=== PATIENT | female | born 1965 | race Caucasian/White ===

== ENCOUNTER 2020-11-28 23:32 | Emergency (ER) | payer OTHER ==
[2020-11-28 23:47] VITALS: BMI 24.0
[2020-11-29] MEDS ORDERED: ONDANSETRON 4 MG/2 ML VIAL IVPB ONE ×2 (00:47→03:39)
[2020-11-29] MEDS ORDERED: SODIUM CHLORIDE 1,000 ML ONE ×2 (00:47→03:39)
[2020-11-29] MEDS ORDERED: KETOROLAC TROMETHAMINE 30 MG/1 ML VIAL IVPUSH ONE (00:47)
[2020-11-29] MEDS ORDERED: KETOROLAC TROMETHAMINE 30 MG/1 ML VIAL ONE (00:49)
[2020-11-29] MEDS ORDERED: ONDANSETRON 4 MG/2 ML VIAL ONE ×2 (00:49→03:44)
[2020-11-29 01:35] LABS: HEMOGLOBIN 11.2 GM/dL (10.7-15.3); MCH 30.1 pg (25.7-33.7); MEAN CELL VOLUME 86.1 fl (80-96); MEAN PLT VOLUME 7.7 fl (7.5-11.1); PLATELET COUNT 201 10^3/uL (134-434); RBC 3.72 M/mm3 (3.60-5.2); RDW 14.6 % (11.6-15.6); WHITE BLOOD COUNT 7.9 K/mm3 (4.0-10.0)
[2020-11-29 02:06] LABS: CHLORIDE 98 mmol/L (98-107); SODIUM 131 mmol/L (136-145)
[2020-11-29 02:09] LABS: ALBUMIN 3.7 g/dl (3.4-5.0); ANION GAP 11 MMOL/L (8-16); BLOOD UREA NITROGEN 32.1 mg/dL (7-18); CO2 23 mmol/L (21-32)
[2020-11-29 02:12] LABS: CREATININE 1.8 mg/dL (0.55-1.3); SGOT/AST 13 U/L (15-37); SGPT/ALT 30 U/L (13-61)
[2020-11-29 02:14] LABS: BILIRUBIN,TOTAL 1.7 mg/dL (0.2-1); TOT PROT 6.6 g/dl (6.4-8.2)
[2020-11-29 02:15] LABS: ALK PHOS 96 U/L (45-117)
[2020-11-29 02:20] LABS: GLUCOSE,RANDOM 409 mg/dL (74-106)
[2020-11-29 02:43] LABS: ANISOCYTOSIS 2+; MACROCYTOSIS 0; PLATELET ESTIMATE NORMAL; TEAR DROP CELLS 1+
[2020-11-29 03:28] VITALS: BP 128/59
[2020-11-29] MEDS ORDERED: PIPERACILLIN/TAZOB 3.375 GM 3.375 GM in DEXTROSE 5%-WATER - 50 ML IVPB ONE (03:40)
[2020-11-29] MEDS ORDERED: ACETAMINOPHEN INJECTION 100 ML IVPB ONE (03:41)
[2020-11-29] MEDS ORDERED: ACETAMINOPHEN 1000 MG/100 ML VIAL (NON FORMULARY) IVPB ONE (03:41)
[2020-11-29] MEDS ORDERED: PIPERACILLIN/TAZOBACTAM 3.375 GM VIAL IVPB ONE (03:44)
[2020-11-29] MEDS ORDERED: INSULIN REGULAR HUMAN 100 UNITS/ML *VIAL IVPUSH ONE (03:59)
[2020-11-29] MEDS ORDERED: INSULIN REGULAR HUMAN 100 UNITS/ML *VIAL ONE (04:03)
[2020-11-29 05:26] VITALS: PULSE 108; TEMP 99.5
== END 2020-11-29 05:27 | disposition home or self-care (01) ==
LOC: FER 23:32
DX: N10 Acute pyelonephritis (principal)
CPT/HCPCS: 36415; 74176-TC; 80053; 82962; 85025; 87086; 87186; 99284-25; C9803; J0131; U0003; U0005

== ENCOUNTER 2020-11-29 13:13 | Inpatient (IN) | payer OTHER ==
[2020-11-29 13:38] VITALS: BMI 23.8
[2020-11-29 14:42] LABS: HEMATOCRIT 25.6 % (32.4-45.2); MCHC 35.1 g/dl (32.0-36.0); MEAN CELL VOLUME 88.4 fl (80-96); MEAN PLT VOLUME 8.6 fl (7.5-11.1); PLATELET COUNT 124 10^3/uL (134-434); RDW 13.8 % (11.6-15.6); WHITE BLOOD COUNT 10.6 K/mm3 (4.0-10.8)
[2020-11-29 14:50] LABS: ALBUMIN 2.9 g/dl (3.4-5.0); BILIRUBIN,TOTAL 3.7 mg/dl (0.2-1); CALCIUM 7.4 mg/dl (8.5-10); MAGNESIUM 0.8 mg/dL (1.8-2.4); PHOSPHOROUS 1.5 mg/dl (2.5-4.9); TOT PROT 4.8 g/dl (6.4-8.2)
[2020-11-29] MEDS ORDERED: VANCOMYCIN 1 GM in D5W (PRE-DOCKED) 1,000 MG/250 ML IVPB ONE (15:41)
[2020-11-29] MEDS ORDERED: PIPERACILLIN/TAZOB 3.375 GM 3.375 GM in DEXTROSE 5%-WATER - 50 ML IVPB ONE (15:41)
[2020-11-29] MEDS ORDERED: VASOPRESSIN 40 UNITS/100 ML BAG IV SCH (16:00)
[2020-11-29] MEDS ORDERED: VASOPRESSIN 20 UNITS/ML VIAL IV ONE (16:00)
[2020-11-29] MEDS ORDERED: NOREPINEPHRINE BITARTRATE 4 MG/4 ML ML IV ONE (16:07)
[2020-11-29] MEDS: NOREPINEPHRINE BITARTRATE 16,000 MCG in SODIUM CHLORIDE 484 ML IV SCH (16:15)
[2020-11-29] MEDS ORDERED: LORazepam 2 MG/ML SDV VIAL IVPUSH ONE (16:21)
[2020-11-29] MEDS ORDERED: PIPERACILLIN/TAZOBACTAM 3.375 GM VIAL IVPB ONE (16:30)
[2020-11-29] MEDS ORDERED: VANCOMYCIN 1,000 MG VIAL (RESTRICTED TO ID ONLY) ONE (16:35)
[2020-11-29 17:04] LABS: INR 3.52 (0.82-1.09); PROTHROMBIN TIME (PATIENT) 39.4 SEC (10.2-13.0)
[2020-11-29 17:57] LABS: LACTIC ACID 3.2 mmol/L (0.4-2.0)
[2020-11-29] MEDS ORDERED: TRIMETHOBENZAMIDE HCL 300 MG CAPSULE PO ONE (18:31)
[2020-11-29] MEDS ORDERED: PHYTONADIONE 10 MG/1 ML AMP IVPB ONE (19:28)
[2020-11-29] MEDS ORDERED: MIDAZOLAM HCL 2 MG/2 ML SINGLE DOSE VIAL ONE (19:36)
[2020-11-29] MEDS ORDERED: KETAMINE HCL 200 MG/20 ML VIAL ONE (19:36)
[2020-11-29] MEDS ORDERED: PROPOFOL 20 ML ONE (19:36)
[2020-11-29] MEDS ORDERED: DEXMEDETOMIDINE HCL 200 MCG/2 ML IVPB ONE (19:43)
[2020-11-29] MEDS ORDERED: BUPIVACAINE HCL/PF 0.25% (2.5MG/ML) 10 ML VIAL ONE (19:43)
[2020-11-29 21:43] LABS: URINE APPEARANCE TURBID; URINE BILIRUBIN 1+ (NEGATIVE); URINE COLOR DK YELLOW; URINE GLUCOSE (UA) 250 (NEGATIVE); URINE KETONE TRACE (NEGATIVE)
[2020-11-29 21:44] LABS: EPI CELLS 9.1 /uL (0-25.1); URINE LEUK ESTERASE 3+ (NEGATIVE); URINE NITRITE NEGATIVE (NEGATIVE); URINE PROTEIN 100 (NEGATIVE); URINE RBC 1137 /uL (0-23.9); URINE WBC 626.7 /uL (0-25.8)
[2020-11-29 21:45] LABS: HYALINE CASTS 2.92 /uL (0-3.1); URINE BACTERIA 4834 /uL (0-1359)
[2020-11-29 21:47] LABS: CREATININE, URINE RANDOM 87.2 mg/dL (30-150)
[2020-11-29] MEDS ORDERED: MAGNESIUM SULF 50% (8.12 MEQ/2 ML-1 GM VIAL) IVPB ONE (22:08)
[2020-11-29] MEDS: MUPIROCIN 2% TOPICAL OINTMENT FOR DECOLONIZATION NS SCH (23:38)
[2020-11-29] MEDS: CHLORHEXIDINE GLUCONATE 4% CLEANSER FOR DECOLONIZATION TP SCH (23:38)
[2020-11-29 23:51] LABS: HEMATOCRIT 25.7 % (32.4-45.2); HEMOGLOBIN 8.7 GM/dL (10.7-15.3); MCH 29.6 pg (25.7-33.7); MCHC 33.9 g/dl (32.0-36.0); MEAN CELL VOLUME 87.3 fl (80-96); PLATELET COUNT 125 10^3/uL (134-434); RBC 2.95 M/mm3 (3.60-5.2); RDW 14.4 % (11.6-15.6); WHITE BLOOD COUNT 22.9 K/mm3 (4.0-10.0)
[2020-11-30 00:25] LABS: LACTIC ACID 3.1 mmol/L (0.4-2.0)
[2020-11-30] MEDS ORDERED: ACETAMINOPHEN 1000 MG/100 ML VIAL (NON FORMULARY) IVPB ONE (00:36)
[2020-11-30] MEDS ORDERED: PIPERACILLIN/TAZOB 3.375 GM 3.375 GM in DEXTROSE 5%-WATER - 50 ML IVPB ONE (05:15)
[2020-11-30] MEDS ORDERED: DEXTROSE 5%-WATER - 50 ML IVPB ONE ×3 (05:56→18:00)
[2020-11-30] MEDS ORDERED: PIPERACILLIN/TAZOBACTAM 3.375 GM VIAL IVPB ONE ×3 (05:56→18:00)
[2020-11-30 06:42] LABS: INR 1.74 (0.83-1.09); PROTHROMBIN TIME (PATIENT) 21.5 SEC (9.7-13.0)
[2020-11-30 06:46] LABS: BLOOD UREA NITROGEN 37.1 mg/dL (7-18); CREATININE 2.4 mg/dL (0.55-1.3); GLUCOSE,RANDOM 332 mg/dL (74-106); SODIUM 136 mmol/L (136-145)
[2020-11-30 06:47] LABS: ANION GAP 11 MMOL/L (8-16); CALCIUM 6.5 mg/dL (8.5-10.1); CHLORIDE 110 mmol/L (98-107); CO2 15 mmol/L (21-32); PHOSPHOROUS 2.5 mg/dL (2.5-4.9)
[2020-11-30 06:48] LABS: ALBUMIN 2.3 g/dl (3.4-5.0); BILIRUBIN,TOTAL 2.7 mg/dL (0.2-1); MAGNESIUM 1.4 mg/dL (1.8-2.4); SGOT/AST 23 U/L (15-37); SGPT/ALT 36 U/L (13-61); TOT PROT 4.7 g/dl (6.4-8.2)
[2020-11-30] MEDS ORDERED: INSULIN (NOVOLOG) ASPART 100 UNITS/ML 10ML VIAL SQ ONE (07:43)
[2020-11-30 08:26] LABS: ALK PHOS 73 U/L (45-117); EOS % 0.5 % (0-4.5); HEMATOCRIT 25.8 % (32.4-45.2); HEMOGLOBIN 8.8 GM/dL (10.7-15.3); LYMPH % 4.8 % (8-40); MCH 29.7 pg (25.7-33.7); MCHC 34.2 g/dl (32.0-36.0); MEAN CELL VOLUME 86.9 fl (80-96); MEAN PLT VOLUME 8.7 fl (7.5-11.1); MONO % 4.1 % (3.8-10.2); NEUT % 90.4 % (42.8-82.8); PLATELET COUNT 111 10^3/uL (134-434); RBC 2.96 M/mm3 (3.60-5.2); RDW 14.9 % (11.6-15.6); WHITE BLOOD COUNT 19.5 K/mm3 (4.0-10.0)
[2020-11-30 08:27] LABS: BASO % 0.2 % (0-2.0)
[2020-11-30] MEDS ORDERED: MAGNESIUM 1GM/D5W - 1 GM/100 ML IVPB IVPB ONE (08:30)
[2020-11-30 09:26] LABS: URINE COLOR YELLOW
[2020-11-30 09:27] LABS: PH,URINE 5.5 (5.0-8.0); URINE APPEARANCE CLOUDY; URINE BILIRUBIN NEGATIVE (NEGATIVE); URINE GLUCOSE (UA) 1 (NEGATIVE); URINE KETONE NEGATIVE (NEGATIVE); URINE NITRITE NEGATIVE (NEGATIVE); URINE PROTEIN 1 (NEGATIVE); URINE UROBILINOGEN 0.2 mg/dL (0.2-1.0)
[2020-11-30 09:28] LABS: EPI CELLS 22 /uL (0-25.1); HYALINE CASTS 3 /uL (0-3.1); URINE BACTERIA 3.7 /uL (0-1359); URINE LEUK ESTERASE 2+ (NEGATIVE); URINE RBC 373 /uL (0-23.9); URINE WBC 196 /uL (0-25.8)
[2020-11-30] MEDS ORDERED: PIPERACILLIN/TAZOB 3.375 GM 3.375 GM in DEXTROSE 5%-WATER - 50 ML IVPB SCH (10:00)
[2020-11-30] MEDS: NAPH,MB-DB/K PH,MBDB POWDER PACKET PO SCH (10:06)
[2020-11-30] MEDS: MUPIROCIN 2% TOPICAL OINTMENT FOR DECOLONIZATION NS SCH ×2 (10:27→22:10)
[2020-11-30] MEDS: LACTATED RINGERS SOLUTION 1,000 ML/1,000 ML INFUS.BAG IV SCH (11:55)
[2020-11-30] MEDS: INSULIN SLIDING SCALE (NOVOLOG) 1 VIAL SQ SCH ×3 (11:55→22:11)
[2020-11-30] MEDS: ENOXAPARIN NA (PORCINE) 60 MG/0.6 ML DISP.SYRIN SQ SCH (16:07)
[2020-11-30 16:47] LABS: YEAST NEGATIVE (NEGATIVE)
[2020-11-30] MEDS ORDERED: VANCOMYCIN 1 GM in D5W (PRE-DOCKED) 1,000 MG/250 ML IVPB SCH (17:00)
[2020-11-30] MEDS: NOREPINEPHRINE BITARTRATE 16,000 MCG in SODIUM CHLORIDE 484 ML IV SCH (18:27)
[2020-11-30] MEDS: PIPERACILLIN/TAZOB 3.375 GM 3.375 GM in DEXTROSE 5%-WATER - 50 ML IVPB SCH (18:27)
[2020-11-30] MEDS: ACETAMINOPHEN 1000 MG/100 ML VIAL (NON FORMULARY) IVPB PRN (19:20)
[2020-11-30] MEDS: CHLORHEXIDINE GLUCONATE 4% CLEANSER FOR DECOLONIZATION TP SCH (22:11)
[2020-12-01] MEDS: ACETAMINOPHEN 1000 MG/100 ML VIAL (NON FORMULARY) IVPB PRN ×2 (01:20→18:43)
[2020-12-01] MEDS ORDERED: PIPERACILLIN/TAZOBACTAM 3.375 GM VIAL IVPB ONE ×4 (01:22→23:39)
[2020-12-01] MEDS ORDERED: DEXTROSE 5%-WATER - 50 ML IVPB ONE ×4 (01:22→23:39)
[2020-12-01] MEDS: PIPERACILLIN/TAZOB 3.375 GM 3.375 GM in DEXTROSE 5%-WATER - 50 ML IVPB SCH ×3 (01:56→17:55)
[2020-12-01] MEDS ORDERED: MELATONIN 5 MG TABLETS PO ONE (03:26)
[2020-12-01] MEDS: INSULIN SLIDING SCALE (NOVOLOG) 1 VIAL SQ SCH ×4 (06:07→22:15)
[2020-12-01 06:40] LABS: HEMATOCRIT 22.4 % (32.4-45.2); HEMOGLOBIN 7.8 GM/dL (10.7-15.3); MCH 29.9 pg (25.7-33.7); MEAN CELL VOLUME 85.5 fl (80-96); MEAN PLT VOLUME 9.1 fl (7.5-11.1); PLATELET COUNT 86 10^3/uL (134-434); RBC 2.62 M/mm3 (3.60-5.2); WHITE BLOOD COUNT 11.8 K/mm3 (4.0-10.0)
[2020-12-01 07:10] LABS: BLOOD UREA NITROGEN 27.4 mg/dL (7-18)
[2020-12-01 07:11] LABS: MAGNESIUM 2.1 mg/dL (1.8-2.4)
[2020-12-01 07:14] LABS: CREATININE 1.7 mg/dL (0.55-1.3)
[2020-12-01 07:15] LABS: BILIRUBIN,TOTAL 1.4 mg/dL (0.2-1)
[2020-12-01 07:19] LABS: CALCIUM 7.3 mg/dL (8.5-10.1); TOT PROT 4.5 g/dl (6.4-8.2)
[2020-12-01 07:46] LABS: PHOSPHOROUS 2.2 mg/dL (2.5-4.9)
[2020-12-01] MEDS ORDERED: NAPH,MB-DB/K PH,MBDB POWDER PACKET PO ONE (08:37)
[2020-12-01] MEDS: MUPIROCIN 2% TOPICAL OINTMENT FOR DECOLONIZATION NS SCH ×2 (09:16→21:22)
[2020-12-01] MEDS: NAPH,MB-DB/K PH,MBDB POWDER PACKET PO SCH (09:16)
[2020-12-01 09:42] LABS: ANISOCYTOSIS 0; MACROCYTOSIS 0; PLATELET ESTIMATE DECREASED
[2020-12-01] MEDS: LACTATED RINGERS SOLUTION 1,000 ML/1,000 ML INFUS.BAG IV SCH (12:15)
[2020-12-01 14:37] LABS: INR 1.13 (0.83-1.09); PROTHROMBIN TIME (PATIENT) 13.9 SEC (9.7-13.0)
[2020-12-01] MEDS: ENOXAPARIN NA (PORCINE) 60 MG/0.6 ML DISP.SYRIN SQ SCH (15:31)
[2020-12-01] MEDS ORDERED: VANCOMYCIN 1 GM in D5W (PRE-DOCKED) 1,000 MG/250 ML IVPB SCH (17:00)
[2020-12-01] MEDS ORDERED: TRIMETHOBENZAMIDE HCL 200MG/2ML INJ IM ONE (17:11)
[2020-12-01] MEDS: NOREPINEPHRINE BITARTRATE 16,000 MCG in SODIUM CHLORIDE 484 ML IV SCH (17:19)
[2020-12-01] MEDS ORDERED: ONDANSETRON 4 MG/2 ML VIAL IVPUSH ONE (18:39)
[2020-12-01] MEDS: CHLORHEXIDINE GLUCONATE 4% CLEANSER FOR DECOLONIZATION TP SCH (21:23)
[2020-12-01] MEDS ORDERED: PROMETHAZINE HCL 25 MG/1 ML VIAL IVPUSH ONE (23:28)
[2020-12-02] MEDS ORDERED: LORazepam 1 MG TABLET PO ONE ×2 (00:52→01:15)
[2020-12-02] MEDS ORDERED: MAGNESIUM SULF 50% (8.12 MEQ/2 ML-1 GM VIAL) IVPB ONE (00:52)
[2020-12-02] MEDS ORDERED: ONDANSETRON *ODT* 4 MG TABLET SL ONE (01:08)
[2020-12-02] MEDS: PIPERACILLIN/TAZOB 3.375 GM 3.375 GM in DEXTROSE 5%-WATER - 50 ML IVPB SCH ×3 (02:45→17:04)
[2020-12-02 06:06] LABS: HEMATOCRIT 24.6 % (32.4-45.2); HEMOGLOBIN 8.5 GM/dL (10.7-15.3); MCH 29.8 pg (25.7-33.7); MCHC 34.6 g/dl (32.0-36.0); MEAN CELL VOLUME 86.2 fl (80-96); MEAN PLT VOLUME 8.8 fl (7.5-11.1); PLATELET COUNT 134 10^3/uL (134-434); RBC 2.85 M/mm3 (3.60-5.2); WHITE BLOOD COUNT 14.9 K/mm3 (4.0-10.0)
[2020-12-02 06:30] LABS: ALBUMIN 2.2 g/dl (3.4-5.0); BLOOD UREA NITROGEN 21.4 mg/dL (7-18); CALCIUM 7.9 mg/dL (8.5-10.1); MAGNESIUM 2.1 mg/dL (1.8-2.4)
[2020-12-02 06:33] LABS: CREATININE 1.3 mg/dL (0.55-1.3)
[2020-12-02] MEDS: INSULIN SLIDING SCALE (NOVOLOG) 1 VIAL SQ SCH ×4 (06:33→22:06)
[2020-12-02 06:34] LABS: PHOSPHOROUS 2.4 mg/dL (2.5-4.9)
[2020-12-02] MEDS ORDERED: PT OWN MED DRAWER 7, Y5N ONE (06:54)
[2020-12-02 08:17] LABS: ANISOCYTOSIS 0; HELMET CELLS 0; HOWELL-JOLLY BODIES 0; MACROCYTOSIS 0; OVALOCYTE 0; PLATELET ESTIMATE DECREASED; ROULEAU 0; SICKELED CELLS 0; TARGET CELLS 0; TEAR DROP CELLS 0; TOXIC GRANULATION 0
[2020-12-02] MEDS ORDERED: DEXTROSE 5%-WATER - 50 ML IVPB ONE ×2 (09:20→16:46)
[2020-12-02] MEDS ORDERED: PIPERACILLIN/TAZOBACTAM 3.375 GM VIAL IVPB ONE ×2 (09:20→16:46)
[2020-12-02] MEDS: MUPIROCIN 2% TOPICAL OINTMENT FOR DECOLONIZATION NS SCH ×2 (09:51→21:39)
[2020-12-02] MEDS: NAPH,MB-DB/K PH,MBDB POWDER PACKET PO SCH (09:51)
[2020-12-02] MEDS: ENOXAPARIN NA (PORCINE) 60 MG/0.6 ML DISP.SYRIN SQ SCH ×2 (09:51→22:06)
[2020-12-02] MEDS ORDERED: ONDANSETRON 4 MG/2 ML VIAL IVPUSH ONE ×2 (16:40→22:53)
[2020-12-02] MEDS: LACTATED RINGERS SOLUTION 1,000 ML/1,000 ML INFUS.BAG IV SCH (16:57)
[2020-12-02] MEDS ORDERED: hydrOXYzine HCL 50 MG/ML VIAL IM ONE (18:01)
[2020-12-02] MEDS: CHLORHEXIDINE GLUCONATE 4% CLEANSER FOR DECOLONIZATION TP SCH (21:40)
[2020-12-02] MEDS ORDERED: ONDANSETRON 4 MG/2 ML VIAL ONE (22:54)
[2020-12-02] MEDS ORDERED: MELATONIN 5 MG TABLETS PO ONE (22:59)
[2020-12-03] MEDS ORDERED: PIPERACILLIN/TAZOBACTAM 3.375 GM VIAL IVPB ONE ×3 (00:47→17:29)
[2020-12-03] MEDS ORDERED: DEXTROSE 5%-WATER - 50 ML IVPB ONE ×3 (00:47→17:29)
[2020-12-03] MEDS: PIPERACILLIN/TAZOB 3.375 GM 3.375 GM in DEXTROSE 5%-WATER - 50 ML IVPB SCH ×3 (01:46→17:40)
[2020-12-03] MEDS: INSULIN SLIDING SCALE (NOVOLOG) 1 VIAL SQ SCH ×4 (06:48→22:02)
[2020-12-03 09:17] LABS: HEMATOCRIT 22.5 % (32.4-45.2); HEMOGLOBIN 7.9 GM/dL (10.7-15.3); MCH 30.2 pg (25.7-33.7); MCHC 34.9 g/dl (32.0-36.0); MEAN CELL VOLUME 86.4 fl (80-96); MEAN PLT VOLUME 8.6 fl (7.5-11.1); PLATELET COUNT 129 10^3/uL (134-434); RBC 2.61 M/mm3 (3.60-5.2)
[2020-12-03 09:42] LABS: BLOOD UREA NITROGEN 14.6 mg/dL (7-18); CALCIUM 7.9 mg/dL (8.5-10.1)
[2020-12-03 09:43] LABS: MAGNESIUM 1.4 mg/dL (1.8-2.4)
[2020-12-03 09:46] LABS: CREATININE 1.1 mg/dL (0.55-1.3)
[2020-12-03 09:47] LABS: BILIRUBIN,TOTAL 0.7 mg/dL (0.2-1); TOT PROT 4.6 g/dl (6.4-8.2)
[2020-12-03] MEDS: MUPIROCIN 2% TOPICAL OINTMENT FOR DECOLONIZATION NS SCH ×2 (10:38→22:03)
[2020-12-03] MEDS: ENOXAPARIN NA (PORCINE) 60 MG/0.6 ML DISP.SYRIN SQ SCH ×2 (10:39→22:02)
[2020-12-03] MEDS: NAPH,MB-DB/K PH,MBDB POWDER PACKET PO SCH (10:39)
[2020-12-03] MEDS ORDERED: METOCLOPRAMIDE HCL INJECTION 10 MG/2 ML VIAL IVPUSH ONE (17:14)
[2020-12-03] MEDS: LACTOBACILLUS ACIDOPHILUS 1 TABLET PO SCH (17:40)
[2020-12-03] MEDS: ACETAMINOPHEN 1000 MG/100 ML VIAL (NON FORMULARY) IVPB PRN (18:02)
[2020-12-03] MEDS: LACTATED RINGERS SOLUTION 1,000 ML/1,000 ML INFUS.BAG IV SCH (19:14)
[2020-12-03] MEDS ORDERED: INSULIN (NOVOLOG) ASPART 100 UNITS/ML 10ML VIAL ONE (21:58)
[2020-12-03] MEDS: CHLORHEXIDINE GLUCONATE 4% CLEANSER FOR DECOLONIZATION TP SCH (22:03)
[2020-12-03] MEDS ORDERED: ONDANSETRON 4 MG/2 ML VIAL IVPUSH ONE (22:58)
[2020-12-04] MEDS ORDERED: MELATONIN 5 MG TABLETS PO ONE (01:22)
[2020-12-04] MEDS ORDERED: DEXTROSE 5%-WATER - 50 ML IVPB ONE ×3 (02:10→18:20)
[2020-12-04] MEDS ORDERED: PIPERACILLIN/TAZOBACTAM 3.375 GM VIAL IVPB ONE ×3 (02:10→18:20)
[2020-12-04] MEDS: PIPERACILLIN/TAZOB 3.375 GM 3.375 GM in DEXTROSE 5%-WATER - 50 ML IVPB SCH ×3 (02:15→18:38)
[2020-12-04] MEDS ORDERED: ACETAMINOPHEN 1000 MG/100 ML VIAL (NON FORMULARY) IVPB PRN (04:54)
[2020-12-04] MEDS: INSULIN SLIDING SCALE (NOVOLOG) 1 VIAL SQ SCH ×4 (06:15→21:30)
[2020-12-04] MEDS: LACTATED RINGERS SOLUTION 1,000 ML/1,000 ML INFUS.BAG IV SCH ×3 (06:16→16:07)
[2020-12-04 07:58] LABS: HEMATOCRIT 23.6 % (32.4-45.2); MCH 29.6 pg (25.7-33.7); MEAN CELL VOLUME 87.2 fl (80-96); MEAN PLT VOLUME 8.5 fl (7.5-11.1); PLATELET COUNT 151 10^3/uL (134-434); RDW 14.8 % (11.6-15.6)
[2020-12-04 08:12] LABS: CALCIUM 7.8 mg/dL (8.5-10.1)
[2020-12-04 08:13] LABS: ALBUMIN 2.1 g/dl (3.4-5.0); BLOOD UREA NITROGEN 10.6 mg/dL (7-18); MAGNESIUM 1.2 mg/dL (1.8-2.4)
[2020-12-04 08:16] LABS: CREATININE 0.9 mg/dL (0.55-1.3); PHOSPHOROUS 3.3 mg/dL (2.5-4.9)
[2020-12-04 08:17] LABS: BILIRUBIN,TOTAL 0.8 mg/dL (0.2-1)
[2020-12-04 08:18] LABS: TOT PROT 4.6 g/dl (6.4-8.2)
[2020-12-04] MEDS ORDERED: MAGNESIUM OXIDE 400 MG TABLET (FP) PO ONE (08:21)
[2020-12-04] MEDS ORDERED: MUPIROCIN 2% TOPICAL OINTMENT FOR DECOLONIZATION NS SCH (10:00)
[2020-12-04] MEDS: ENOXAPARIN NA (PORCINE) 60 MG/0.6 ML DISP.SYRIN SQ SCH ×2 (10:36→21:30)
[2020-12-04] MEDS: LACTOBACILLUS ACIDOPHILUS 1 TABLET PO SCH (10:37)
[2020-12-04] MEDS: NAPH,MB-DB/K PH,MBDB POWDER PACKET PO SCH (10:37)
[2020-12-04] MEDS ORDERED: MAGNESIUM SULF 50% (8.12 MEQ/2 ML-1 GM VIAL) IVPB ONE (10:58)
[2020-12-04] MEDS: METOCLOPRAMIDE HCL INJECTION 10 MG/2 ML VIAL IVPUSH PRN (14:11)
[2020-12-04] MEDS ORDERED: ONDANSETRON 4 MG TABLET PO PRN (16:57)
[2020-12-04] MEDS: MAGNESIUM OXIDE 400 MG TABLET (FP) PO SCH (21:30)
[2020-12-04] MEDS ORDERED: CHLORHEXIDINE GLUCONATE 4% CLEANSER FOR DECOLONIZATION TP SCH (22:00)
[2020-12-05] MEDS ORDERED: PIPERACILLIN/TAZOBACTAM 3.375 GM VIAL IVPB ONE ×2 (00:54→09:04)
[2020-12-05] MEDS ORDERED: DEXTROSE 5%-WATER - 50 ML IVPB ONE ×2 (00:54→09:04)
[2020-12-05] MEDS: PIPERACILLIN/TAZOB 3.375 GM 3.375 GM in DEXTROSE 5%-WATER - 50 ML IVPB SCH ×2 (01:05→09:25)
[2020-12-05] MEDS: LACTATED RINGERS SOLUTION 1,000 ML/1,000 ML INFUS.BAG IV SCH (02:30)
[2020-12-05] MEDS: METOCLOPRAMIDE HCL INJECTION 10 MG/2 ML VIAL IVPUSH PRN (03:28)
[2020-12-05] MEDS: INSULIN SLIDING SCALE (NOVOLOG) 1 VIAL SQ SCH ×2 (06:20→12:26)
[2020-12-05 06:59] LABS: HEMATOCRIT 22.7 % (32.4-45.2); HEMOGLOBIN 7.7 GM/dL (10.7-15.3); MCH 29.4 pg (25.7-33.7); MEAN CELL VOLUME 86.6 fl (80-96); MEAN PLT VOLUME 8.2 fl (7.5-11.1); PLATELET COUNT 173 10^3/uL (134-434); RBC 2.62 M/mm3 (3.60-5.2); RDW 14.6 % (11.6-15.6); WHITE BLOOD COUNT 10.2 K/mm3 (4.0-10.0)
[2020-12-05 07:12] LABS: INR 1.06 (0.83-1.09); PROTHROMBIN TIME (PATIENT) 13.1 SEC (9.7-13.0)
[2020-12-05 07:38] LABS: BLOOD UREA NITROGEN 7.8 mg/dL (7-18)
[2020-12-05 07:39] LABS: MAGNESIUM 1.6 mg/dL (1.8-2.4)
[2020-12-05 07:41] LABS: CREATININE 0.9 mg/dL (0.55-1.3)
[2020-12-05 07:42] LABS: BILIRUBIN,TOTAL 0.9 mg/dL (0.2-1); PHOSPHOROUS 3.3 mg/dL (2.5-4.9)
[2020-12-05 07:43] LABS: TOT PROT 4.7 g/dl (6.4-8.2)
[2020-12-05] MEDS ORDERED: MAGNESIUM SULF 50% (8.12 MEQ/2 ML-1 GM VIAL) IVPB ONE ×2 (07:44→09:19)
[2020-12-05] MEDS: ENOXAPARIN NA (PORCINE) 60 MG/0.6 ML DISP.SYRIN SQ SCH (09:24)
[2020-12-05] MEDS: MAGNESIUM OXIDE 400 MG TABLET (FP) PO SCH (09:24)
[2020-12-05] MEDS: LACTOBACILLUS ACIDOPHILUS 1 TABLET PO SCH (09:24)
[2020-12-05] MEDS: NAPH,MB-DB/K PH,MBDB POWDER PACKET PO SCH (09:25)
[2020-12-05] MEDS ORDERED: INSULIN (LEVEMIR) 100 UNITS/ML UNITS SQ ONE ×3 (10:51→12:29)
[2020-12-05] MEDS ORDERED: INSULIN (NOVOLOG) ASPART 100 UNITS/ML 10ML VIAL ONE (11:47)
[2020-12-05 15:23] VITALS: BP 156/80; PULSE 89; TEMP 98
[2020-12-06] MEDS ORDERED: INSULIN (LEVEMIR) 100 UNITS/ML UNITS SQ SCH (10:00)
== END 2020-12-05 18:24 | disposition home or self-care (01) | DRG 854 ==
LOC: FER 13:13 → JICU 17:50 → J8W 12-03 20:27
PROVIDERS: ADMIT Internal Medicine Pulmonary Disease; ATTEND Internal Medicine
PROC: 05HM33Z Insertion of Infusion Device into Right Internal Jugular Vein, Percutaneous Approach (ICD-10-PCS; 2020-11-29)
PROC: B543ZZA Ultrasonography of Right Jugular Veins, Guidance (ICD-10-PCS; 2020-11-29)
PROC: 0T778DZ Dilation of Left Ureter with Intraluminal Device, Via Natural or Artificial Opening Endoscopic (ICD-10-PCS; principal; 2020-11-29 18:24)
DX: A41.9 Sepsis, unspecified organism (principal); N17.9 Acute kidney failure, unspecified; N12 Tubulo-interstitial nephritis, not specified as acute or chronic; N13.6 Pyonephrosis; E87.2 Acidosis; I95.9 Hypotension, unspecified; E87.70 Fluid overload, unspecified; I10 Essential (primary) hypertension; E83.42 Hypomagnesemia; N13.9 Obstructive and reflux uropathy, unspecified; D72.829 Elevated white blood cell count, unspecified; D69.6 Thrombocytopenia, unspecified; E11.9 Type 2 diabetes mellitus without complications
CPT/HCPCS: 36415; 71045-TC-FY; 76000-TC-FY; 76775-TC; 80053; 81003; 82436; 82570; 82962; 83036; 83605; 83735; 84100; 84133; 84300; 84484; 85025; 85027; 85610; 86850; 86900; 86901; 87040; 87086; 93005; 93010; 94010; 99285-25; J0131; Q0162

== ENCOUNTER 2020-12-05 21:22 | Inpatient (IN) | payer OTHER ==
[2020-12-05 21:26] VITALS: BMI 24.7
[2020-12-05] MEDS ORDERED: ONDANSETRON 4 MG/2 ML VIAL IVPUSH ONE (22:33)
[2020-12-05] MEDS ORDERED: SODIUM CHLORIDE 0.9% 1000 ML INFUS.BAG IV ONE (22:33)
[2020-12-05] MEDS ORDERED: ONDANSETRON 4 MG/2 ML VIAL ONE (22:41)
[2020-12-05] MEDS ORDERED: ACETAMINOPHEN 500 MG TABLET (FP) PO ONE (22:58)
[2020-12-05] MEDS ORDERED: ACETAMINOPHEN 325 MG TABLET (FP) ONE (23:00)
[2020-12-05 23:41] LABS: BASO % 0.5 % (0-2.0); EOS % 1.6 % (0-4.5); HEMATOCRIT 25.3 % (32.4-45.2); HEMOGLOBIN 8.4 GM/dL (10.7-15.3); MCH 29.1 pg (25.7-33.7); MCHC 33.1 g/dl (32.0-36.0); MEAN PLT VOLUME 8.3 fl (7.5-11.1); MONO % 5.7 % (3.8-10.2); NEUT % 84.2 % (42.8-82.8); PLATELET COUNT 202 10^3/uL (134-434); RBC 2.88 M/mm3 (3.60-5.2); RDW 14.9 % (11.6-15.6)
[2020-12-05 23:48] LABS: INR 1.02 (0.83-1.09); PROTHROMBIN TIME (PATIENT) 12.3 SEC (9.7-13.0)
[2020-12-05 23:50] LABS: ACTIVATED PTT 28.9 SECONDS (25.2-36.5)
[2020-12-06 00:03] LABS: BLOOD UREA NITROGEN 9.9 mg/dL (7-18); CALCIUM 8.3 mg/dL (8.5-10.1)
[2020-12-06 00:07] LABS: CREATININE 1.3 mg/dL (0.55-1.3)
[2020-12-06 00:08] LABS: BILIRUBIN,TOTAL 0.8 mg/dL (0.2-1); TOT PROT 5.8 g/dl (6.4-8.2)
[2020-12-06 00:11] LABS: N-TERMINAL BNP 2410.4 pg/ml (5-125)
[2020-12-06 00:43] LABS: ALBUMIN 2.7 g/dl (3.4-5.0)
[2020-12-06 03:02] LABS: ANISOCYTOSIS 3+; CORRECTED WBC 11.61 K/mm3; MACROCYTOSIS 1+; OVALOCYTE 1+; PLATELET ESTIMATE NORMAL; ROULEAU 1+; TEAR DROP CELLS 1+
[2020-12-06] MEDS ORDERED: ONDANSETRON 4 MG/2 ML VIAL IVPUSH ONE ×2 (03:32→17:11)
[2020-12-06] MEDS ORDERED: ACETAMINOPHEN 1000 MG/100 ML VIAL (NON FORMULARY) IVPB ONE (03:36)
[2020-12-06] MEDS ORDERED: ACETAMINOPHEN INJECTION 100 ML IVPB ONE (03:56)
[2020-12-06] MEDS ORDERED: ONDANSETRON 4 MG/2 ML VIAL ONE (03:56)
[2020-12-06] MEDS ORDERED: ENOXAPARIN NA (PORCINE) 60 MG/0.6 ML DISP.SYRIN SQ ONE (03:56)
[2020-12-06] MEDS: ENOXAPARIN NA (PORCINE) 60 MG/0.6 ML DISP.SYRIN SQ SCH ×4 (04:13→21:19)
[2020-12-06 04:55] LABS: IRON SERUM 21 ug/dL (50-175); TOTAL IRON BINDING CAPACITY 232 ug/dL (250-450); URIC ACID 5.8 mg/dL (2.6-7.2)
[2020-12-06 05:55] LABS: EPI CELLS 9 /uL (0-25.1); HYALINE CASTS 2 /uL (0-3.1); PH,URINE 5.5 (5.0-8.0); URINE APPEARANCE CLEAR; URINE BACTERIA 8 /uL (0-1359); URINE BILIRUBIN NEGATIVE (NEGATIVE); URINE COLOR YELLOW; URINE GLUCOSE (UA) 3+ (NEGATIVE); URINE KETONE 3+ (NEGATIVE); URINE LEUK ESTERASE NEGATIVE (NEGATIVE); URINE NITRITE NEGATIVE (NEGATIVE); URINE PROTEIN 1+ (NEGATIVE); URINE RBC 107 /uL (0-23.9); URINE UROBILINOGEN 0.2 mg/dL (0.2-1.0); URINE WBC 34 /uL (0-25.8)
[2020-12-06] MEDS: INSULIN SLIDING SCALE (NOVOLOG) 1 VIAL SQ SCH ×4 (06:17→21:19)
[2020-12-06] MEDS ORDERED: METOCLOPRAMIDE HCL INJECTION 10 MG/2 ML VIAL IVPUSH ONE (06:21)
[2020-12-06] MEDS ORDERED: DEXTROSE 5%-WATER - 50 ML IVPB ONE (09:47)
[2020-12-06] MEDS ORDERED: PIPERACILLIN/TAZOBACTAM 3.375 GM VIAL IVPB ONE (09:47)
[2020-12-06] MEDS ORDERED: ENOXAPARIN NA (PORCINE) 30 MG/0.3 ML DISP.SYRIN SQ SCH (10:00)
[2020-12-06] MEDS ORDERED: PIPERACILLIN/TAZOB 3.375 GM 3.375 GM in DEXTROSE 5%-WATER - 50 ML IVPB SCH (10:00)
[2020-12-06] MEDS: PIPERACILLIN/TAZOB 3.375 GM 3.375 GM in DEXTROSE 5%-WATER - 50 ML IVPB SCH ×2 (10:24→17:20)
[2020-12-06 12:40] LABS: INR 0.98 (0.83-1.09); PROTHROMBIN TIME (PATIENT) 11.8 SEC (9.7-13.0)
[2020-12-06 13:06] LABS: ALBUMIN 2.4 g/dl (3.4-5.0)
[2020-12-06 13:08] LABS: BLOOD UREA NITROGEN 10.6 mg/dL (7-18); CALCIUM 8.4 mg/dL (8.5-10.1)
[2020-12-06 13:09] LABS: CREATININE 1.6 mg/dL (0.55-1.3); MAGNESIUM 1.6 mg/dL (1.8-2.4)
[2020-12-06 13:11] LABS: TOT PROT 5.5 g/dl (6.4-8.2)
[2020-12-06 13:12] LABS: PHOSPHOROUS 4.1 mg/dL (2.5-4.9)
[2020-12-06 13:15] LABS: BILIRUBIN,TOTAL 0.6 mg/dL (0.2-1)
[2020-12-06] MEDS ORDERED: PT OWN MED DRAWER 7, Y5N ONE (18:38)
[2020-12-06] MEDS: AMOX TR/POT CLAV 875MG/125MG TABLETS (FP) PO SCH (18:39)
[2020-12-06] MEDS ORDERED: METOCLOPRAMIDE HCL 10 MG TABLET (FP) PO ONE (19:15)
[2020-12-06] MEDS ORDERED: ONDANSETRON 4 MG/2 ML VIAL IVPUSH PRN (21:11)
[2020-12-07] MEDS: MELATONIN 5 MG TABLETS PO PRN ×2 (02:18→23:02)
[2020-12-07] MEDS: INSULIN SLIDING SCALE (NOVOLOG) 1 VIAL SQ SCH ×4 (06:25→21:21)
[2020-12-07] MEDS ORDERED: PT OWN MED DRAWER 7, Y5N ONE (09:10)
[2020-12-07 09:22] LABS: HEMATOCRIT 23.6 % (32.4-45.2); MCH 29.7 pg (25.7-33.7); MCHC 34.1 g/dl (32.0-36.0); MEAN CELL VOLUME 87.2 fl (80-96); MEAN PLT VOLUME 8.5 fl (7.5-11.1); PLATELET COUNT 275 10^3/uL (134-434); RDW 14.3 % (11.6-15.6); WHITE BLOOD COUNT 9.1 K/mm3 (4.0-10.0)
[2020-12-07] MEDS: ENOXAPARIN NA (PORCINE) 60 MG/0.6 ML DISP.SYRIN SQ SCH ×2 (09:53→21:21)
[2020-12-07] MEDS: AMOX TR/POT CLAV 875MG/125MG TABLETS (FP) PO SCH ×2 (09:53→17:48)
[2020-12-07] MEDS: FAMOTIDINE 10 MG TABLET PO SCH (09:53)
[2020-12-07 10:02] LABS: ALBUMIN 2.5 g/dl (3.4-5.0); BLOOD UREA NITROGEN 8.7 mg/dL (7-18); CALCIUM 8.3 mg/dL (8.5-10.1); MAGNESIUM 1.9 mg/dL (1.8-2.4)
[2020-12-07 10:05] LABS: CREATININE 1.4 mg/dL (0.55-1.3); PHOSPHOROUS 3.6 mg/dL (2.5-4.9)
[2020-12-07 10:06] LABS: BILIRUBIN,TOTAL 0.9 mg/dL (0.2-1); TOT PROT 5.6 g/dl (6.4-8.2)
[2020-12-07 10:44] LABS: ANISOCYTOSIS 0; MACROCYTOSIS 0; PLATELET ESTIMATE NORMAL
[2020-12-08] MEDS ORDERED: ACETAMINOPHEN 325 MG TABLET (FP) PO ONE (02:57)
[2020-12-08] MEDS: INSULIN SLIDING SCALE (NOVOLOG) 1 VIAL SQ SCH ×4 (06:13→21:21)
[2020-12-08] MEDS ORDERED: amLODIPine BESYLATE 10 MG TABLET (FP) PO ONE (06:39)
[2020-12-08] MEDS ORDERED: amLODIPine BESYLATE 5 MG TABLET (FP) PO SCH (10:00)
[2020-12-08] MEDS: FAMOTIDINE 10 MG TABLET PO SCH (10:32)
[2020-12-08] MEDS: AMOX TR/POT CLAV 875MG/125MG TABLETS (FP) PO SCH ×2 (10:32→17:59)
[2020-12-08] MEDS: ENOXAPARIN NA (PORCINE) 60 MG/0.6 ML DISP.SYRIN SQ SCH ×2 (10:33→21:21)
[2020-12-08] MEDS ORDERED: LABETALOL HCL 100 MG TABLET (FP) PO SCH (10:45)
[2020-12-08 11:13] LABS: HEMATOCRIT 22.2 % (32.4-45.2); HEMOGLOBIN 7.5 GM/dL (10.7-15.3); MCH 29.2 pg (25.7-33.7); MEAN CELL VOLUME 85.8 fl (80-96); MEAN PLT VOLUME 7.6 fl (7.5-11.1); PLATELET COUNT 231 10^3/uL (134-434); RBC 2.58 M/mm3 (3.60-5.2); RDW 14.3 % (11.6-15.6)
[2020-12-08] MEDS ORDERED: INSULIN (LEVEMIR) 100 UNITS/ML UNITS SQ SCH (11:15)
[2020-12-08] MEDS: POLYETHYLENE GLYCOL (HEALTHYLAX) 3350 17 GM PACKET PO SCH (11:32)
[2020-12-08 11:38] LABS: ALBUMIN 2.4 g/dl (3.4-5.0); CALCIUM 8.3 mg/dL (8.5-10.1); MAGNESIUM 1.7 mg/dL (1.8-2.4)
[2020-12-08 11:41] LABS: CREATININE 1.3 mg/dL (0.55-1.3)
[2020-12-08 11:42] LABS: PHOSPHOROUS 3.5 mg/dL (2.5-4.9)
[2020-12-08 11:43] LABS: BILIRUBIN,TOTAL 0.6 mg/dL (0.2-1); TOT PROT 5.3 g/dl (6.4-8.2)
[2020-12-08] MEDS ORDERED: MAGNESIUM OXIDE 400 MG TABLET (FP) PO ONE (12:38)
[2020-12-08] MEDS ORDERED: ACETAMINOPHEN 325 MG TABLET (FP) PO PRN ×3 (13:17→14:22)
[2020-12-08] MEDS ORDERED: ACETAMINOPHEN 325 MG TABLET (FP) ONE (13:24)
[2020-12-08] MEDS: TAMSULOSIN HCL 0.4 MG CAP PO SCH (13:32)
[2020-12-08] MEDS: LISINOPRIL 10 MG TABLET PO SCH (14:24)
[2020-12-08] MEDS ORDERED: MELATONIN 5 MG TABLETS PO PRN (21:01)
[2020-12-08] MEDS ORDERED: LABETALOL HCL 100 MG TABLET (FP) PO ONE (21:08)
[2020-12-08] MEDS: INSULIN (LEVEMIR) 100 UNITS/ML UNITS SQ SCH (21:20)
[2020-12-09] MEDS: INSULIN SLIDING SCALE (NOVOLOG) 1 VIAL SQ SCH ×3 (06:24→17:52)
[2020-12-09] MEDS ORDERED: amLODIPine BESYLATE 5 MG TABLET (FP) PO SCH ×4 (08:00→22:00)
[2020-12-09] MEDS: INSULIN (LEVEMIR) 100 UNITS/ML UNITS SQ SCH (08:34)
[2020-12-09] MEDS: TAMSULOSIN HCL 0.4 MG CAP PO SCH (08:34)
[2020-12-09] MEDS: AMOX TR/POT CLAV 875MG/125MG TABLETS (FP) PO SCH ×2 (08:34→17:53)
[2020-12-09 09:56] LABS: HEMATOCRIT 21.4 % (32.4-45.2); HEMOGLOBIN 7.3 GM/dL (10.7-15.3); MCH 29.2 pg (25.7-33.7); MCHC 34.2 g/dl (32.0-36.0); MEAN CELL VOLUME 85.3 fl (80-96); MEAN PLT VOLUME 7.9 fl (7.5-11.1); PLATELET COUNT 253 10^3/uL (134-434); RBC 2.51 M/mm3 (3.60-5.2); RDW 14.4 % (11.6-15.6); WHITE BLOOD COUNT 4.1 K/mm3 (4.0-10.0)
[2020-12-09 10:20] LABS: ALBUMIN 2.2 g/dl (3.4-5.0); BLOOD UREA NITROGEN 10.3 mg/dL (7-18); CALCIUM 7.9 mg/dL (8.5-10.1); MAGNESIUM 1.4 mg/dL (1.8-2.4)
[2020-12-09 10:23] LABS: PHOSPHOROUS 3.9 mg/dL (2.5-4.9)
[2020-12-09 10:24] LABS: CREATININE 1.4 mg/dL (0.55-1.3)
[2020-12-09 10:26] LABS: BILIRUBIN,TOTAL 0.7 mg/dL (0.2-1)
[2020-12-09] MEDS: POLYETHYLENE GLYCOL (HEALTHYLAX) 3350 17 GM PACKET PO SCH (10:30)
[2020-12-09] MEDS: FAMOTIDINE 10 MG TABLET PO SCH (10:30)
[2020-12-09] MEDS: ENOXAPARIN NA (PORCINE) 60 MG/0.6 ML DISP.SYRIN SQ SCH (10:31)
[2020-12-09] MEDS: LISINOPRIL 10 MG TABLET PO SCH (10:33)
[2020-12-09] MEDS ORDERED: MAGNESIUM SULF 50% (8.12 MEQ/2 ML-1 GM VIAL) IVPB ONE ×2 (15:26)
[2020-12-09] MEDS ORDERED: IRON SUCROSE INJECTION 200 MG in SODIUM CHLORIDE 90 ML IVPB ONE (15:27)
[2020-12-09] MEDS ORDERED: MAGNESIUM OXIDE 400 MG TABLET (FP) PO ONE (15:27)
[2020-12-09 18:24] VITALS: BP 155/77; PULSE 84; TEMP 98.1
== END 2020-12-09 18:17 | disposition home or self-care (01) | DRG 684 ==
LOC: JER 21:22 → JERBED 12-06 02:20 → J5S 12-06 06:12
PROVIDERS: ADMIT Internal Medicine; ATTEND Internal Medicine
DX: N17.9 Acute kidney failure, unspecified (principal); M79.89 Other specified soft tissue disorders; N13.2 Hydronephrosis with renal and ureteral calculous obstruction; I10 Essential (primary) hypertension; I95.9 Hypotension, unspecified; D72.829 Elevated white blood cell count, unspecified; E11.65 Type 2 diabetes mellitus with hyperglycemia; E83.42 Hypomagnesemia; D50.9 Iron deficiency anemia, unspecified
CPT/HCPCS: 36415; 71045-TC-FY; 76775-TC; 76856-TC; 80048; 80053; 80061; 81003; 82570; 82728; 82962; 83525; 83540; 83550; 83735; 83880; 84100; 84156; 84550; 85025; 85027; 85045; 85610; 85730; 87040; 87086; 93005; 93010; 93306-TC; 93970-TC; 99285-25; C9803; J0131; U0003; U0005